=== PATIENT | female | born 1935 | race Native Hawaiian/Other Pacific Islander ===

== ENCOUNTER 2016-05-15 13:18 | Outpatient (CLI) | payer OTHER, BC ==
[~2016-05-15 13:18] MED LIST: ASPIRIN325 M1 PO; LISI10TA11 PO; METOPROLOL25 M1 PO; PLAVIX75 MG PO; PRAVACHOL20 MG PO
[2016-05-15 14:52] LABS: POTASSIUM 4.3 mmol/L (3.6-5.2); SODIUM 136 mmol/L (136-145)
[2016-05-15 15:03] LABS: PLATELET COUNT 221 K/uL (152-353)
== END 2016-05-15 14:18 | disposition home or self-care (01) ==
LOC: LAB 13:18
PROVIDERS: Nurse Practitioner Family
DX: N39.498 Other specified urinary incontinence (principal); N95.2 Postmenopausal atrophic vaginitis; E78.4 Other hyperlipidemia; R35.0 Frequency of micturition; Z79.899 Other long term (current) drug therapy; Z51.81 Encounter for therapeutic drug level monitoring
CPT/HCPCS: 80053; 80061; 83036; 84439; 84443; 85027

== ENCOUNTER 2016-11-19 14:11 | Outpatient (CLI) | payer OTHER, BC ==
[2016-11-19 14:48] LABS: POTASSIUM 4.4 mmol/L (3.6-5.2); SODIUM 142 mmol/L (136-145)
[2016-11-19 14:52] LABS: PLATELET COUNT 225 K/uL (152-353)
== END 2016-11-19 19:38 | disposition home or self-care (01) ==
LOC: LAB 14:11
PROVIDERS: Nurse Practitioner Family
DX: I10 Essential (primary) hypertension (principal); E78.4 Other hyperlipidemia; E55.9 Vitamin D deficiency, unspecified; Z79.899 Other long term (current) drug therapy; Z51.81 Encounter for therapeutic drug level monitoring
CPT/HCPCS: 80053; 80061; 82306; 82607; 83036; 84436; 84443; 85027

== ENCOUNTER 2016-12-02 10:30 | Outpatient (CLI) | payer OTHER, BC | END 2016-12-02 19:27 | disposition home or self-care (01) | LOC: RAD 10:30 | DX: Z13.820 Encounter for screening for osteoporosis (principal) ==

== ENCOUNTER 2017-03-20 10:02 | Emergency (ER) | payer OTHER, BC ==
[~2017-03-20] VITALS: Ht 160 cm; Wt 86.2 kg
[2017-03-20 10:28] LABS: PLATELET COUNT 200 K/uL (152-353)
[2017-03-20] MEDS ORDERED: COZAAR25 MG PO (10:38)
[2017-03-20] MEDS ORDERED: ASPIR-LOW81 MG OR (10:38)
[2017-03-20 10:42] LABS: POTASSIUM 4.1 mmol/L (3.6-5.2); SODIUM 141 mmol/L (136-145)
[2017-03-20 11:45] VITALS: BP 158/81; TEMP 97.8
== END 2017-03-20 11:45 | disposition home or self-care (01) ==
LOC: ED 10:02
PROVIDERS: Emergency Medicine
DX: I16.0 Hypertensive urgency (principal)
CPT/HCPCS: 36415; 80053; 81000; 82550; 83880; 84484; 85027; 93005; 99284

== ENCOUNTER 2017-07-14 12:21 | Observation (INO) | payer OTHER, BC ==
[~2017-07-14] VITALS: Ht 157.5 cm; Wt 86.7 kg
[~2017-07-14 12:21] MED LIST changes: +ASPIR-LOW81 MG OR; +COZAAR25 MG PO
[2017-07-14] MEDS ORDERED: MONT10TA PO (13:58)
[2017-07-14 14:27] VITALS: BP 185/83; TEMP 98.3; Ht 157.5 cm; Wt 86.7 kg
[2017-07-14 14:28] LABS: PLATELET COUNT 226 K/uL (152-353)
[2017-07-14 14:31] LABS: POTASSIUM 3.7 mmol/L (3.6-5.2)
[2017-07-14 15:14] LABS: PARTIAL THROMBOPLASTIN TIME 24.4 SECONDS (24.5-33.6)
[2017-07-14 16:00] VITALS: BP 185/83; TEMP 98.3
[2017-07-14 20:00] VITALS: BP 171/71; TEMP 98.8
[2017-07-14 23:55] VITALS: BP 108/63; TEMP 98.6
[2017-07-15 04:00] VITALS: BP 113/51; TEMP 98.2
[2017-07-15 06:47] LABS: PLATELET COUNT 213 K/uL (152-353)
[2017-07-15 07:22] LABS: POTASSIUM 3.3 mmol/L (3.6-5.2)
[2017-07-15 08:00] VITALS: BP 131/59; TEMP 98
[2017-07-15 12:00] VITALS: BP 129/63; TEMP 98.3
[2017-07-15 16:00] VITALS: BP 127/63; TEMP 98.3
[2017-07-15 20:00] VITALS: BP 147/78; TEMP 98.4
[2017-07-16] VITALS: BP 134/58; TEMP 98.3
[2017-07-16 04:00] VITALS: BP 157/62; TEMP 98.3
[2017-07-16 06:32] LABS: PLATELET COUNT 192 K/uL (152-353)
[2017-07-16 08:08] VITALS: BP 139/59; TEMP 98.8
[2017-07-16] MEDS ORDERED: BENZONATATE100 MG PO (10:44)
[2017-07-16] MEDS ORDERED: CHLOSUS43 PO (10:44)
[2017-07-16 12:00] VITALS: BP 146/56; TEMP 98.9
[2017-07-17] MEDS ORDERED: Z-PAK PO (08:11)
== END 2017-07-16 18:50 | disposition home or self-care (01) ==
LOC: MED/SURG 12:21
DX: R06.02 Shortness of breath (principal); R05 Cough; I25.10 Atherosclerotic heart disease of native coronary artery without angina pectoris; I10 Essential (primary) hypertension; K21.9 Gastro-esophageal reflux disease without esophagitis
CPT/HCPCS: 36415; 36591; 36600; 80053; 82805; 83735; 83880; 85027; 85610; 85730; 87070; 87205; 93005; 94640; 94664; 94760; 96374; 96375; 99220; G0378; G0379; J1885; Q9963

== ENCOUNTER 2017-10-22 13:23 | Outpatient (CLI) | payer OTHER, BC ==
[~2017-10-22 13:23] MED LIST changes: +BENZONATATE100 MG PO; +CHLOSUS43 PO; +MONT10TA PO; +Z-PAK PO
[2017-10-22 14:10] LABS: PLATELET COUNT 209 K/uL (152-353)
== END 2017-10-22 19:31 | disposition home or self-care (01) ==
LOC: LAB 13:23
PROVIDERS: Nurse Practitioner Family
DX: I10 Essential (primary) hypertension (principal); E78.4 Other hyperlipidemia; R06.02 Shortness of breath; I25.10 Atherosclerotic heart disease of native coronary artery without angina pectoris; Z79.899 Other long term (current) drug therapy; Z51.81 Encounter for therapeutic drug level monitoring
CPT/HCPCS: 80053; 80061; 83036; 84436; 84443; 85027; 87077; 87086; 87088; 87186

== ENCOUNTER 2019-04-19 09:45 | Outpatient (CLI) | payer OTHER, BC | END 2019-04-19 19:24 | disposition home or self-care (01) | LOC: RAD 09:45 | DX: R05 Cough (principal); I25.10 Atherosclerotic heart disease of native coronary artery without angina pectoris; I10 Essential (primary) hypertension; E78.49 Other hyperlipidemia ==

== ENCOUNTER 2019-06-07 10:56 | Outpatient (CLI) | payer OTHER, BC | END 2019-06-07 19:33 | disposition home or self-care (01) | LOC: RAD 10:56 | DX: L98.8 Other specified disorders of the skin and subcutaneous tissue (principal); M25.461 Effusion, right knee; W19.XXXA Unspecified fall, initial encounter ==

== ENCOUNTER 2020-01-18 12:42 | Outpatient (CLI) | payer OTHER, BC ==
[2020-01-18 13:20] LABS: PLATELET COUNT 212 K/uL (152-353)
[2020-01-18 13:47] LABS: POTASSIUM 4.5 mmol/L (3.6-5.2)
== END 2020-01-18 19:23 | disposition home or self-care (01) ==
LOC: LABW 12:42
PROVIDERS: Internal Medicine
DX: I12.9 Hypertensive chronic kidney disease with stage 1 through stage 4 chronic kidney disease, or unspecified chronic kidney disease (principal); N18.3 Chronic kidney disease, stage 3 (moderate)
CPT/HCPCS: 36415; 80053; 81000; 82024; 82088; 82306; 82330; 82533; 82570; 83735; 83835; 83970; 84100; 84155; 84244; 84436; 84443; 85027

== ENCOUNTER 2020-01-21 09:59 | Outpatient (CLI) | payer OTHER, BC | END 2020-01-21 23:55 | disposition home or self-care (01) | LOC: US 09:59 | DX: N18.3 Chronic kidney disease, stage 3 (moderate) (principal) ==

== ENCOUNTER 2020-03-13 08:36 | Outpatient (CLI) | payer OTHER, BC | END 2020-03-13 23:22 | disposition home or self-care (01) | LOC: CT 08:36 | DX: R10.84 Generalized abdominal pain (principal) | CPT/HCPCS: 36415; 82565; 84520; Q9963 ==

== ENCOUNTER 2020-09-01 12:10 | Outpatient (CLI) | payer OTHER, BC | END 2020-09-01 20:55 | disposition home or self-care (01) | LOC: RAD 12:10 | PROVIDERS: ATTEND Nurse Practitioner Family | DX: E78.49 Other hyperlipidemia (principal); M54.89 Other dorsalgia; E66.9 Obesity, unspecified; N18.30 Chronic kidney disease, stage 3 unspecified; I25.10 Atherosclerotic heart disease of native coronary artery without angina pectoris; R73.03 Prediabetes; M19.90 Unspecified osteoarthritis, unspecified site; I12.9 Hypertensive chronic kidney disease with stage 1 through stage 4 chronic kidney disease, or unspecified chronic kidney disease ==

== ENCOUNTER 2022-02-05 08:38 | Outpatient (CLI) | payer OTHER, BC ==
[2022-02-05 09:21] LABS: PLATELET COUNT 189 K/uL (152-353)
== END 2022-02-05 20:58 | disposition home or self-care (01) ==
LOC: LABW 08:38
PROVIDERS: ATTEND Nurse Practitioner Family
DX: I12.9 Hypertensive chronic kidney disease with stage 1 through stage 4 chronic kidney disease, or unspecified chronic kidney disease (principal); N18.30 Chronic kidney disease, stage 3 unspecified; I25.10 Atherosclerotic heart disease of native coronary artery without angina pectoris; E78.49 Other hyperlipidemia; R73.03 Prediabetes; R60.0 Localized edema
CPT/HCPCS: 36415; 80053; 80061; 81002; 82043; 82306; 82570; 83036; 83880; 84439; 84443; 85027

== ENCOUNTER 2022-07-30 16:08 | Outpatient (CLI) | payer OTHER, BC | END 2022-07-30 19:19 | disposition home or self-care (01) | LOC: CT 16:08 | PROVIDERS: ATTEND Nurse Practitioner Family | DX: R51.9 Headache, unspecified (principal) ==